=== PATIENT | female | born 1945 | race Caucasian/White ===

== ENCOUNTER 2023-11-30 08:00 | Outpatient (CLI) | payer MEDICARE | END 2023-11-30 08:01 | disposition home or self-care (01) | LOC: LAB.S 08:00 | PROVIDERS: ATTEND Internal Medicine | DX: R05.1 Acute cough (principal) ==

== ENCOUNTER 2023-11-30 08:00 | Outpatient (CLI) | payer MEDICARE ==
--- NOTE | 2023-11-30 18:08 | XRAY Report ---
Chest 2V HISTORY: COUGH COMPARISON: None. TECHNIQUE: 2 views of the chest are submitted for interpretation. FINDINGS/IMPRESSION: No pleural effusion or pneumothorax. Mild bronchiectasis in bilateral lower lobe. No focal consolidat ion. No pulmonary edema. 2.8 cm radiodensity in the left lower lung, of unclear clinical significance. Recommend further evalu ation with CT chest. Normal cardiomediastinal silhouette. Multiple compression deformity of the vertebral body at the thoracolumbar junction, incompletely eliseo acterized. This Reviewed by: Suly Vidal MD on 11/30/2023 6:06 PM PDT Approved by: Suly Vidal MD on 11/30/2023 6:06 PM PDT Station ID: [id number]
== END 2023-11-30 23:59 | disposition home or self-care (01) ==
LOC: DI.S 08:00
PROVIDERS: ATTEND Internal Medicine
DX: R05.1 Acute cough (principal); J47.9 Bronchiectasis, uncomplicated; R91.8 Other nonspecific abnormal finding of lung field

== ENCOUNTER 2024-03-10 11:11 | Outpatient (CLI) | payer MEDICARE ==
--- NOTE | 2024-03-13 22:11 | XRAY Report ---
PROCEDURE: Ribs w/PA Chest 3+V LT INDICATIONS: CONTUSION OF BACK WALL OF THORAX TECHNIQUE: 2 views of the left ribs were acquired, along with a single view chest. COMPARISON: None. FINDINGS: Surgical changes and devices: None. Bones and chest wall: No fractures or dislocations. No suspicious bony lesions. Overlying soft tis sues appear unremarkable. Lungs and pleura: No pleural effusions or pneumothorax. 2.8 cm rounded radiodensity again seen proje cted over the left lung base.. Mediastinum: Mediastinal contours appear normal. Heart size is normal. IMPRESSION: No displaced rib fracture or pneumothorax. 2.8 cm rounded radiodensity again seen projected over the left lung base. Chest CT scan recommended. Reviewed by: BENEDICT Reynolds on 03/13/2024 10:10 PM PDT Approved by: Michelle Perdue MD on 03/13/2024 10:10 PM PDT Station ID: [id number]
== END 2024-03-10 23:59 | disposition home or self-care (01) ==
LOC: DI.S 11:11
PROVIDERS: ATTEND Physician Assistant
DX: S20.224A Contusion of middle back wall of thorax, initial encounter (principal); R91.8 Other nonspecific abnormal finding of lung field